=== PATIENT | female | born 1980 | race Caucasian/White ===

== ENCOUNTER 2022-04-01 08:51 | Outpatient (CLI) | payer BC, SELFPAY ==
[2022-04-01 14:35] LABS: Chloride* 105 mmol/L (96-114)
[2022-04-01 14:36] LABS: Potassium* 3.8 mmol/L (3.6-5.1); Sodium* 140 mmol/L (135-149)
[2022-04-01 14:38] LABS: Alanine Aminotransferase* 18 U/L (4-35); Blood Urea Nitrogen* 14 mg/dL (5-24); Carbon Dioxide* 27 mmol/L (20-32); Cholesterol* 214 mg/dL (90-199); Creatinine* 0.8 mg/dL (0.5-1.5); Estimated Glomerular Filt Rate 94 ml/min
[2022-04-01 14:39] LABS: Calcium* 9.4 mg/dL (8.4-10.6); Glucose* 86 mg/dL (60-115); HDL Cholesterol* 36 mg/dL (>=50); LDL Cholesterol Calculated 138 mg/dL (<100); Triglycerides* 198 mg/dL (40-149)
== END 2022-04-01 08:52 | disposition home or self-care (01) ==
PROVIDERS: PCP Family Medicine; Visit Provider Family Medicine
DX: E78.5 Hyperlipidemia, unspecified (principal); E03.9 Hypothyroidism, unspecified; F41.1 Generalized anxiety disorder
CPT/HCPCS: 80048; 80061; 84443; 84460

== ENCOUNTER 2022-09-03 11:38 | Outpatient (CLI) | payer BC, SELFPAY | END 2022-09-03 11:39 | disposition home or self-care (01) | LOC: NFLDREF 09-04 18:16 | PROVIDERS: PCP Family Medicine; Referring Provider Family Medicine; Visit Provider Family Medicine | DX: R39.9 Unspecified symptoms and signs involving the genitourinary system (principal) | CPT/HCPCS: 81015; 87086 ==

== ENCOUNTER 2022-12-11 08:15 | Outpatient (CLI) | payer BC, SELFPAY | END 2022-12-11 08:16 | disposition home or self-care (01) | PROVIDERS: PCP Family Medicine; Visit Provider Family Medicine | DX: E03.9 Hypothyroidism, unspecified (principal); E78.5 Hyperlipidemia, unspecified | CPT/HCPCS: 84439; 84443 ==

== ENCOUNTER 2023-03-25 14:43 | Outpatient (CLI) | payer BC, SELFPAY | END 2023-03-25 14:44 | disposition home or self-care (01) | LOC: NFLDREF 03-28 08:02 | PROVIDERS: PCP Family Medicine; Referring Provider Family Medicine; Visit Provider Family Medicine | DX: E03.9 Hypothyroidism, unspecified (principal) | CPT/HCPCS: 84443 ==

== ENCOUNTER 2023-07-07 09:09 | Outpatient (CLI) | payer BC, SELFPAY | END 2023-07-07 09:10 | disposition home or self-care (01) | PROVIDERS: PCP Family Medicine; Visit Provider Family Medicine | DX: E78.2 Mixed hyperlipidemia (principal); E03.9 Hypothyroidism, unspecified | CPT/HCPCS: 80048; 80061; 84439; 84443; 84460 ==

== ENCOUNTER 2024-03-29 18:05 | Outpatient (CLI) | payer BC, SELFPAY | END 2024-03-29 18:06 | disposition home or self-care (01) | LOC: NFLDUCREF 18:05 | PROVIDERS: PCP Family Medicine | DX: L02.215 Cutaneous abscess of perineum (principal); B95.7 Other staphylococcus as the cause of diseases classified elsewhere | CPT/HCPCS: 87070 ==

== ENCOUNTER 2024-04-28 08:31 | Outpatient (CLI) | payer BC, SELFPAY | END 2024-04-28 08:32 | disposition home or self-care (01) | PROVIDERS: PCP Family Medicine; Visit Provider Family Medicine | DX: E78.2 Mixed hyperlipidemia (principal); E03.9 Hypothyroidism, unspecified; R53.83 Other fatigue | CPT/HCPCS: 80050; 80053; 80061; 84439; 84443; 85025 ==